=== PATIENT | male | born 1950 | race Caucasian/White ===

== ENCOUNTER 2021-03-14 10:05 | Observation (INO) | payer OTHER, MEDICARE ==
[~2021-03-14] VITALS: Ht 170.2 cm; Wt 100.3 kg
[2021-03-14 11:10] LABS: BASOPHILS # (AUTO) 0.1 X10'3 (0-0.2); BASOPHILS % (AUTO) 1.1 % (0-1); EOSINOPHILS # (AUTO) 0.2 X10'3 (0-0.9); EOSINOPHILS % (AUTO) 3.2 % (0-6); HEMATOCRIT 40.1 % (42.0-52.0); HEMOGLOBIN 13.6 g/dl (14.0-17.9); LYMPHOCYTES # (AUTO) 1.8 X10'3 (1.1-4.8); LYMPHOCYTES % (AUTO) 24.8 % (21-51); MEAN CORPUSCULAR HEMOGLOBIN 30.5 PG (27.0-31.0); MEAN CORPUSCULAR HGB CONC 33.9 g/dL (33.0-36.5); MEAN CORPUSCULAR VOLUME 90.1 FL (78-98); MEAN PLATELET VOLUME 7.1 FL (7.4-10.4); MONOCYTES # (AUTO) 0.5 X10'3 (0-0.9); MONOCYTES % (AUTO) 6.2 % (2-12); NEUTROPHILS # (AUTO) 4.8 X10'3 (1.8-7.7); NEUTROPHILS % (AUTO) 64.7 % (42-75); PLATELET COUNT 208 X10'3 (140-440); RED BLOOD COUNT 4.45 X10'6 (4.70-6.10); WHITE BLOOD COUNT 7.4 X10'3 (4.5-11.0)
[2021-03-14 11:22] LABS: ALANINE AMINOTRANSFERASE 38 U/L (12-78); ALBUMIN 4.1 G/DL (3.4-5.0); ALBUMIN/GLOBULIN RATIO 1.2 (1.1-1.5); ALKALINE PHOSPHATASE 59 IU/L (46-116); ANION GAP 8 (8-16); ASPARTATE AMINO TRANSFERASE 26 U/L (10-37); BILIRUBIN,TOTAL 0.6 MG/DL (0.1-1.0); BLOOD UREA NITROGEN 18 MG/DL (7-18); BUN/CREATININE RATIO 12.7 (5.4-32.0); CALCIUM 8.4 MG/DL (8.5-10.1); CHLORIDE 109 MMOL/L (99-107); CREATININE 1.42 MG/DL (0.60-1.10); GLUCOSE 113 MG/DL (70-104); POTASSIUM 3.9 MMOL/L (3.5-5.1); SODIUM 146 MMOL/L (135-145); TOTAL CARBON DIOXIDE 28.7 MMOL/L (24-32); TOTAL PROTEIN 7.5 G/DL (6.4-8.2); eGFR 49 ML/MIN
[2021-03-14 12:01] LABS: CLARITY,URINE SLIGHTLY CLOUDY (Clear); COLOR,URINE YELLOW (Yellow); GLUCOSE, URINE NEGATIVE (Neg); KETONES,URINE NEGATIVE (Neg); LEUKOCYTE ESTERASE ,URINE TRACE (Neg); NITRITES, URINE NEGATIVE (Neg); OCCULT BLOOD,URINE TRACE-INTACT (Neg); PROTEIN,URINE NEGATIVE (Neg); UROBILINOGEN,URINE 0.2 E.U/dL (0.2-1.0)
[2021-03-14 12:06] LABS: UA COLLECTION TYPE NON-SPECIFIED
[2021-03-14 12:07] LABS: AMORPHOUS PHOSPHATES 1+; BACTERIA,URINE FEW /HPF (Neg); RBC,URINE 0-2 /HPF (0-2); SQUAMOUS EPITHELIAL CELL,UR FEW /LPF (FEW)
[2021-03-14] MEDS ORDERED: HYDROcodone/acetaminophen 5mg/325mg tablet PO ONE (12:15)
[2021-03-14] MEDS ORDERED: normal saline 1000ML IV soln IVB ONE (12:15)
[2021-03-14] MEDS ORDERED: ketorolac trometh. 30mg/ml inj. IV ONE (12:15)
[2021-03-14] MEDS ORDERED: CefTRIAXone 2gm/D5W 50ml BAG 50 ML IV ONE (12:20)
[2021-03-14] MEDS ORDERED: HYDR-3965 PO (12:33)
[2021-03-14] MEDS ORDERED: CIPR-202 PO (12:33)
[2021-03-14] MEDS ORDERED: FLO0.4C PO (12:33)
[2021-03-14] MEDS ORDERED: morphine 4 MG/ML inj SYRINge IV ONE (14:00)
[2021-03-14] MEDS ORDERED: tamsulosin 0.4mg capsule PO SCH ×2 (14:32→21:00)
[2021-03-14] MEDS ORDERED: iohexol 300 MG/1 ML 50ml polymer ONE (15:06)
[2021-03-14] MEDS ORDERED: labetalol 20mg/4ml (5mg/ml) syringe IV PRN (15:25)
[2021-03-14] MEDS ORDERED: hydrALAZINE 20mg/ml inj. IV PRN (15:25)
[2021-03-14] MEDS ORDERED: ondansetron/PF 4mg/2ml inj IV PRN (15:25)
[2021-03-14] MEDS ORDERED: morphine 4 MG/ML inj SYRINge IV PRN (15:25)
[2021-03-14] MEDS ORDERED: morphine 2 MG/ML inj. syringe IV PRN (15:25)
[2021-03-14] MEDS ORDERED: ringers solution, lacted 1,000 ML IV SCH (15:25)
[2021-03-14] MEDS ORDERED: ringers solution, lacted 1,000 ML IV ONE (15:25)
[2021-03-14] MEDS ORDERED: fentaNYL/PF 50MCG/1 ML 2ML syringe IV PRN ×2 (15:25)
[2021-03-14] MEDS ORDERED: ceFAZolin/D5W- 1GM premix 50 ML IV SCH (16:00)
[2021-03-14] MEDS ORDERED: AMLO10TA PO (16:15)
[2021-03-14] MEDS ORDERED: ALLO100T25 PO (16:15)
[2021-03-14] MEDS ORDERED: SERT-433 PO (16:15)
[2021-03-14] MEDS ORDERED: ATOR20TA66 PO (16:15)
[2021-03-14] MEDS ORDERED: dexamethasone sod phosphate 10mg/ml inj ONE (17:58)
[2021-03-14] MEDS ORDERED: desflurane 240ml liquid inh. IH ONE (17:58)
[2021-03-14] MEDS ORDERED: fentaNYL/PF 50MCG/1 ML 2ML syringe ONE (18:04)
[2021-03-14] MEDS ORDERED: midazolam 1 mg/ML 2ml injection ONE (18:04)
[2021-03-14] MEDS ORDERED: LIDOcaine 2% (20mg/ml) 5ml vial ONE (18:20)
[2021-03-14] MEDS ORDERED: ondansetron/PF 4mg/2ml inj ONE (18:21)
[2021-03-14] MEDS ORDERED: propofol inj 20 ML IV ONE (18:21)
[2021-03-14 19:19] VITALS: BP 129/70
--- NOTE | 2021-03-14 19:19 | NUR ---
ASSUME CARE VSS NO DISTRESS NO PAIN MATT LOZADA SECURED TO GRAVITY, CONT TO MONITOR Addendum: 03/14/21 at 1927 by Lucrecia Huerta RN Amended: Links added.
[2021-03-14 19:20] VITALS: BP 128/70
[2021-03-14 19:30] VITALS: BP_SYST 125; BP_SYST 131; BP_DIAS 68; BP_DIAS 69
--- NOTE | 2021-03-14 19:37 | NUR ---
AT BEDSIDE GUTIERREZ CATH CARE INSTR GIVEN WITH RETURN DEMO AND UNDERSTANDING NO ?'S OR CONCERNS PT SITTING UP TO SIDE OF BED JOSE PO'S NO PAIN MEETS CRITERIA TO DC HOME. Addendum: 03/14/21 at 1938 by Lucrecia Huerta RN Amended: Links added.
== END 2021-03-14 19:49 | disposition home or self-care (01) ==
LOC: ER 10:06 → ED HOLD 14:52
PROVIDERS: ADMIT Physician Assistant Surgical; ATTEND Physician Assistant Surgical
DX: N20.0 Calculus of kidney (principal); N39.0 Urinary tract infection, site not specified; Z20.822 Contact with and (suspected) exposure to COVID-19; I12.9 Hypertensive chronic kidney disease with stage 1 through stage 4 chronic kidney disease, or unspecified chronic kidney disease; N18.9 Chronic kidney disease, unspecified; Z79.899 Other long term (current) drug therapy
CPT/HCPCS: 36415; 52005; 74176; 80053; 81001; 85025; 87088; 87635; 96365; 96366; 96375; 99284; C1758; C1769; G0378; J0690; J0696; J1100; J1885; J2001; J2250; J2270; J2405; J2704; J3010; J7030; J7120; Q9967; A4338; A4618; A7000

== ENCOUNTER 2022-10-04 10:30 | Emergency (ER) | payer OTHER, MEDICARE ==
[~2022-10-04] VITALS: Ht 170.2 cm; Wt 101.0 kg
[~2022-10-04 10:30] MED LIST: ALLO100T25 PO; AMLO10TA PO; ATOR20TA66 PO; SERT-433 PO
[2022-10-04 10:45] VITALS: BP 153/87
== END 2022-10-04 16:38 | disposition left against medical advice (07) ==
LOC: ER 10:31
DX: N23 Unspecified renal colic (principal); Z53.21 Procedure and treatment not carried out due to patient leaving prior to being seen by health care provider
CPT/HCPCS: 99281